=== PATIENT | male | born 1985 | race Caucasian/White ===

== ENCOUNTER 2021-09-28 11:47 | Emergency (ER) | payer OTHER ==
[~2021-09-28] VITALS: Ht 193 cm; Wt 83.2 kg
[2021-09-28 11:54] VITALS: BP 117/79; PULSE 77; TEMP 98
== END 2021-09-28 13:10 | disposition home or self-care (01) ==
LOC: COL.ER 11:47
DX: M70.52 Other bursitis of knee, left knee (principal)